=== PATIENT | female | born 1960 | race Caucasian/White ===

== ENCOUNTER → 2018-05-17 | Outpatient (CLI) | payer OTHER ==
--- NOTE | 2018-05-19 08:49 | MM ---
Reason for exam: screening (asymptomatic). Last mammogram was performed 2 years and 6 months ago. History: Patient is postmenopausal and history of other cancer. Family history of breast cancer in sister at age 49. Benign MG stereo VAD BX LT of the left breast, October 30, 2013. MG Screening Mammo w CAD Bilateral CC and MLO view(s) were taken. Prior study comparison: November 03, 2015, bilateral MG screening mammo w CAD. October 23, 2014, right breast MG work up mamm w CAD RT. The breast tissue is heterogeneously dense. This may lower the sensitivity of mammography. There is a focal asymmetry in the upper outer left breast. Finding is new when compared with prior studies. ASSESSMENT: Incomplete: need additional imaging evaluation, BI-RAD 0 RECOMMENDATION: Special view mammogram of the left breast.
== END | disposition home or self-care (01) ==
LOC: RADMAMWWP 15:58
PROVIDERS: ATTEND Family Medicine
DX: Z12.31 Encounter for screening mammogram for malignant neoplasm of breast (principal)
CPT/HCPCS: 77067

== ENCOUNTER → 2018-05-31 | Outpatient (CLI) | payer OTHER ==
--- NOTE | 2018-06-01 10:57 | MM ---
Reason for exam: additional evaluation requested from abnormal screening. Last mammogram was performed less than 1 month ago. History: Patient is postmenopausal and history of other cancer. Family history of breast cancer in sister at age 49. Benign MG stereo VAD BX LT of the left breast, October 30, 2013. Physical Findings: Nurse Summary: 0.5cm nodule in the left breast at 4 o'clock (nurse alicia). MG Work Up Mamm w CAD LT Spot compression CC, spot compression MLO, and LM view(s) were taken of the left breast. Prior study comparison: May 17, 2018, bilateral MG screening mammo w CAD. November 03, 2015, bilateral MG screening mammo w CAD. Density persists, ultrasound recommended. These results were verbally communicated with the patient and result sheet given to the patient on 05/31/18. ASSESSMENT: Incomplete: need additional imaging evaluation, BI-RAD 0 RECOMMENDATION: Ultrasound of the left breast.
--- NOTE | 2018-06-01 10:59 | USB ---
Reason for exam: additional evaluation requested from abnormal screening. History: Patient is postmenopausal and history of other cancer. Family history of breast cancer in sister at age 49. Benign MG stereo VAD BX LT of the left breast, October 30, 2013. US Breast Workup Limited LT Left limited breast ultrasound including focal area of concern, retroareolar and axilla demonstrates a 7 x 5 x 5mm solid, hypoechoic, vascular lesion at 3 o'clock and a 8 x 4 x 6mm oval lobe at 12 o'clock. These results were verbally communicated with the patient and result sheet given to the patient on 05/31/18. ASSESSMENT: Suspicious, BI-RAD 4 RECOMMENDATION: Ultrasound core biopsy of the left breast. (3 o'clock) Called Dr. Babb with mammographic findings and has scheduled an appointment for the patient for 06/15/18 at 3:[address] Joaquin. PRELIMINARY REPORT CALLED AND FAXED TO DR. JOAQUIN ON 06/01/18.
== END | disposition home or self-care (01) ==
LOC: RADMAMWWP 13:36
PROVIDERS: ATTEND Family Medicine
DX: R92.8 Other abnormal and inconclusive findings on diagnostic imaging of breast (principal)
CPT/HCPCS: 77065

== ENCOUNTER → 2018-06-15 | Outpatient (CLI) | payer OTHER ==
[2018-06-15 15:27] VITALS: BP 127/71; PULSE 77; RESP 16; TEMP 98.3; BMI 27.4
--- NOTE | 2018-06-15 16:09 | P.GSHP ---
History of Present Illness H&P Date: 06/15/18 Chief Complaint: Radiographic abnormality left breast Provider is a 57-year-old white female who presents for evaluation of radiographic abnormality noted left breast. In 05/17/2018 she underwent a bilateral mammogram. This revealed a focal asymmetry in the upper outer left breast. No lesions of concern were identified in the right breast. The patient subsequently had additional radiographic views of the left breast and the density persisted. She then proceeded to a left breast ultrasound performed on 2718. This revealed a 7 x 5 mm solid hypoechoic vascular lesion at 3:00 and a 8 x 4 mm lesion at 12:00. The findings were felt to be suspicious for the 3:00 lesion and an ultrasound-guided core biopsy was recommended. The patient does not feel any changes or abnormalities in her breasts. The patient denies any trauma or infection to her breasts. She has no skin changes or nipple discharge for which she is concerned. The patient is status post left breast stereotactic core biopsy in the past and the findings were benign. Doris Risk: 5 year: 2.8% lifetime risk: 15.2% Family History: 1. patient : cervical and skin cancer ( unsure of the type) 2. sister: breast cancer at 54 3. paternal grandmother: throat 4. maternal grandmother: stomach cancer Hormonal History: menarche: 15 : 4, 3 live births, 1 [place], breast fed: yes first born at 19 menopasue: hysterectomy for cervical cancer at the age of 25, did nto take ovaries BCP: 3 years hormones: no Past surgical history: 1. Hysterectomy 2. Cholecystectomy 3. Sinus surgery 4. Stereotactic breast biopsy of the left breast Past medical history: 1. Cataracts 2. HTN 3. tremors 4. "heart racing" 5. GERD Social History: smoke: 1/2 PPD since alcohol: stopped 2007 drugs: none - Constitutional Constitutional: Denies chills, Denies fever - EENT Comment: cataracts Eyes: denies pain Ears: right: decreased hearing, bilateral: tinnitus Ears, nose, mouth and throat: Reports headache - Breasts Breasts: bilateral: as per HPI - Cardiovascular Comment: heart racing Cardiovascular: Reports high blood pressure - Respiratory Comment: smoker, COPD, emphysema - Gastrointestinal Comment: GERD nausea abdominal pain followed by GI - Genitourinary (Female) Genitourinary: Denies dysuria, Denies hematuria - Menstruation Menstruation: Reports post hysterectomy - Musculoskeletal Comment: arthritis hands fibromyalgia Musculoskeletal: Reports myalgias - Integumentary Comment: skin cancer treated in the past - Neurological Comment: Tremors, patient has had mini strokes 4 Neurological: Reports numbness, Denies weakness - Psychiatric Psychiatric: Reports anxiety - Endocrine Endocrine: Reports weight change, Denies fatigue - Hematologic/Lymphatic Comment: aspirin - Allergic/Immunologic Allergic/Immunologic: Reports seasonal allergies Past Medical History Past Medical History: Cancer, COPD, GERD/Reflux, Hypertension, Musculoskeletal Disorder Additional Past Medical History / Comment(s): cervical CA, tremors History of Any Multi-Drug Resistant Organisms: None Reported Past Surgical History: Cholecystectomy, Hysterectomy Additional Past Surgical History / Comment(s): sinus surg., colonoscopy Past Anesthesia/Blood Transfusion Reactions: No Reported Reaction Smoking Status: Current every day smoker Past Alcohol Use History: None Reported Past Drug Use History: None Reported - Past Family History Mother Family Medical History: Cancer Sister(s) Family Medical History: Cancer Medications and Allergies Home Medications Medication Instructions Recorded Confirmed Type Albuterol Inhaler [Ventolin 1 - 2 puff INHALATION Q6HR PRN 11/04/14 06/15/18 History Inhaler] HYDROcodone/APAP 7.5-325MG [[place] 1 each PO Q6HR PRN 11/04/14 06/15/18 History 7.5-325] Multivitamin/Iron/Folic Acid 1 each PO DAILY 11/04/14 06/15/18 History [Centrum Complete Multivit Tab] Aspirin [Adult Low Dose Aspirin EC] 81 mg PO DAILY 06/14/18 06/15/18 History Budesonide-Formot 160-4.5 Mcg 2 puff INHALATION BID 06/14/18 06/15/18 History [Symbicort 160-4.5 Mcg Inhaler] Fenofibrate 160 mg PO DAILY 06/14/18 06/15/18 History L.acidoph,Paracasei, B.lactis 1 each PO DAILY 06/14/18 06/15/18 History [Probiotic] Losartan Potassium 100 mg PO QAM 06/14/18 06/15/18 History Magnesium 500 mg PO DAILY 06/14/18 06/15/18 History Metoprolol Succinate [Toprol XL] 50 mg PO QAM 06/14/18 06/15/18 History Oxybutynin Chloride [Ditropan] 5 mg PO BID 06/14/18 06/15/18 History Pantoprazole [Protonix] 40 mg PO DAILY 06/14/18 06/15/18 History Umeclidinium [place] [Incruse 62.5 mcg INHALATION BID 06/14/18 06/15/18 History Ellipta] Azithromycin 1 gm PO 06/15/18 History Carboxymethylcellulose Sodium 15 ml OP 06/15/18 History [Refresh Tears] Moxifloxacin [Vigamox 0.3%] 1 drop RIGHT EYE TID 06/15/18 06/15/18 History prednisoLONE ACETATE 1% OPHTH 1 drops BOTH EYES Q4HR 06/15/18 06/15/18 History [Pred Forte 1%] Allergies Allergy/AdvReac Type Severity Reaction Status Date / Time amoxicillin [From Augmentin] Allergy Itching Unverified 06/15/18 15:32 clavulanic acid Allergy Itching Unverified 06/15/18 15:32 [From Augmentin] dicyclomine Allergy Itching Unverified 06/15/18 15:32 erythromycin base Allergy Itching Unverified 06/15/18 15:32 Penicillins Allergy Rash/Hives Verified 06/15/18 15:32 calcium carbonate AdvReac Nausea & Verified 06/15/18 15:32 [From Viactiv] Vomiting & Diarrhea cholecalciferol (vitamin D3) AdvReac Nausea & Verified 06/15/18 15:32 [From Viactiv] Vomiting & Diarrhea codeine AdvReac Nausea Verified 06/15/18 15:32 phytonadione (vitamin K1) AdvReac Nausea & Verified 06/15/18 15:32 [From Viactiv] Vomiting & Diarrhea Surgical - Exam Vital Signs Temp Pulse Resp BP Pulse Ox 98.3 F 77 16 127/71 95 06/15/18 15:20 06/15/18 15:20 06/15/18 15:20 06/15/18 15:20 06/15/18 15:20 BMI 27.5 - General well developed, well nourished, no distress - Eyes normal ocular movement - ENT no hearing loss, no congestion - Neck no masses, trachea midline - Respiratory normal respiratory effort, clear to auscultation - Cardiovascular Rhythm: regular Heart Sounds: normal: S1, S2 - Abdomen Abdomen: soft, non tender, no guarding, no rigid, no rebound - Integumentary russell turgor - Neurologic no disoriented, no combative - Musculoskeletal normal gait, normal posture - Psychiatric oriented to time, oriented to person, oriented to place, speech is normal, memory intact Breast exam: Right breast: Multi-positional exam no dominant masses or nodules of concern Right axilla: No adenopathy of concern Left breast: Multi-positional exam no dominant masses or nodules of concern Left axilla: No adenopathy of concern Results Radiographic results mammogram and ultrasound reviewed Assessment and Plan Assessment: Impression: 1. Radiographic abnormality left breast 2. Fibrocystic breast disease 3. Family history cancer 4. Personal history of cancer 5. Cataracts 6. HTN 7. tremors 8. "heart racing" 9. GERD 10. High risk for breast cancer as per Doris model (patient is not interested in chemo prevention at this time) Plan: 1. Ultrasound core biopsy of the left breast 2. Medical management of medical conditions 3. follow up one week after core biopsy cc: Dr. Babb
== END | disposition home or self-care (01) ==
LOC: WWCWWP 14:21
PROVIDERS: ATTEND Surgery
DX: Z53.9 Procedure and treatment not carried out, unspecified reason (principal)

== ENCOUNTER 2018-06-20 08:30 | Day surgery (SDC) | payer OTHER ==
[2018-06-14 15:46] VITALS: BMI 27.4
[~2018-06-20 08:30] MED LIST: DEXAMETHASONE SOD PHOSPHATE 10 MG/ML 1 ML VIAL IV ONE; HYDROmorphone 0.5 MG/0.5 ML SYRINGE IVP PRN; LACTATED RINGERS 1,000 ML IV SCH; LIDOCAINE 1% 20 ML VIAL (10MG/ML) FOR IV START INTRADERMA PRN; MIDAZOLAM (PF) 2 MG/2 ML VIAL IV PRN; MOXIFLOXACIN HCL 0.5% DROPS 3 ML BTL OP ONE; ONDANSETRON 4 MG/2 ML VIAL IVP ONE; SCOPOLAMINE 1.5MG/72HR PATCH TRANSDERM ONE; TETRACAINE 0.5% OPHTH (PF) DROPS 4 ML BTL OP ONE; TIMOLOL 0.5% OPHTH DROPS 5 ML BTL OP ONE
[2018-06-20] MEDS: PHENYLEPHRINE 2.5% OPHTH DRP 2ML OP NR ×3 (08:47→09:00)
[2018-06-20] MEDS: CYCLOPENTOLATE 1% OPHTH SOLN 2 ML BTL OP ONE ×3 (08:50→09:03)
[2018-06-20 08:55] VITALS: TEMP 97
[2018-06-20] MEDS ORDERED: MIDAZOLAM 2 MG/2 ML VIAL ONE (09:52)
[2018-06-20] MEDS ORDERED: fentaNYL (PF) 50 MCG/ML 2 ML AMP ONE (09:52)
[2018-06-20] MEDS ORDERED: HYALURONATE SODIUM INTRAOCULAR 1 EACH SYRINGE (12MG/ML) INTRAOCULA ONE (09:53)
[2018-06-20] MEDS ORDERED: BALANCED SALT IRRIG SOLN COMB2 15 ML IRRIG.SOLN IRRIGATION ONE (09:53)
[2018-06-20] MEDS ORDERED: LIDOCAINE 1% (PF) 10MG/ML VIAL SQ ONE (09:53)
[2018-06-20] MEDS ORDERED: EPINEPHrine (PF) 0.3 ML in BALANCED SALT IRRIG SOLN COMB2 500 ML IRRIGATION ONE (10:08)
--- NOTE | 2018-06-20 10:21 | P.OP ---
Date of Procedure: 06/20/18 Preoperative Diagnosis: NS & CS Postoperative Diagnosis: same Procedure(s) Performed: PIOL, OD Implants: PCB00 24.50 Anesthesia: MAC Surgeon: Fernando Millard Estimated Blood Loss (ml): 0 Pathology: none sent Condition: stable Disposition: same day Indications for Procedure: blurry vision Operative Findings: No complications
[2018-06-20 10:46] VITALS: BP 138/81; PULSE 62; RESP 18
--- NOTE | 2018-06-20 12:21 | OP ---
OPERATIVE REPORT DATE OF SURGERY: 06/20/2018. PROCEDURES: Phacoemulsification of cataract and intraocular lens implant of the right eye. PREOPERATIVE DIAGNOSIS: Nuclear sclerosis, cortical sclerosis. POSTOPERATIVE DIAGNOSIS:: Nuclear sclerosis, cortical sclerosis. ESTIMATED BLOOD LOSS:: Zero. SPECIMEN TAKEN:: None. NARRATIVE:: After obtaining the appropriate consent, the patient was brought to the Operating Room where the patient was placed under cardiac monitoring and prepped and draped in the usual sterile manner. At the 11 o'clock position a 15 degree super sharp blade was used to create a paracentesis followed by instillation of 1% Xylocaine MPF 50:50 mix with BSS into the anterior chamber. This was followed by Amvisc to stabilize the anterior chamber. At the 3 o'clock position a self-sealing corneal flap incision was created using 2.8 mm sandra keratome. A cystotome was used to initiate a continuous tear capsulorrhexis which was completed with the Utrata forceps. A Binkhorst cannula was used to hydrodissect the lens nucleus followed by hydrodelineation. Phacoemulsification of the lens was performed utilizing phacochop in 3.71 seconds at 10% power. The remaining cortical material was removed using the irrigation aspiration mode followed by additional 1% Xylocaine MPF into the anterior chamber followed by viscoelastic to stabilize the capsular bag. An [id number] 24.5 Diopters posterior chamber lens was placed into the capsular bag without difficulty. The remaining viscoelastic material was removed from the anterior chamber with the irrigation/aspiration. Balanced salt solution was used to normalize the intraocular pressure. The incision was checked for watertight integrity. The patient then received two drops of 0.5% timolol followed by two drops Vigamox, was lightly patched and shielded in the usual manner. There were no complications from the procedure. The patient tolerated the procedure well and was returned to recovery in good condition. MMODL / IJN: [id number] /
== END 2018-06-20 10:57 | disposition home or self-care (01) ==
LOC: OR 08:30
PROVIDERS: ATTEND Ophthalmology
DX: H25.13 Age-related nuclear cataract, bilateral (principal); H00.023 Hordeolum internum right eye, unspecified eyelid; H00.026 Hordeolum internum left eye, unspecified eyelid; H47.393 Other disorders of optic disc, bilateral; H25.013 Cortical age-related cataract, bilateral; H52.223 Regular astigmatism, bilateral; H52.4 Presbyopia; H52.01 Hypermetropia, right eye; F17.210 Nicotine dependence, cigarettes, uncomplicated; I10 Essential (primary) hypertension; Z88.0 Allergy status to penicillin; Z88.5 Allergy status to narcotic agent; Z88.1 Allergy status to other antibiotic agents; J43.9 Emphysema, unspecified; Z86.73 Personal history of transient ischemic attack (TIA), and cerebral infarction without residual deficits; Z79.82 Long term (current) use of aspirin; Z79.899 Other long term (current) drug therapy; Z79.891 Long term (current) use of opiate analgesic; Z83.518 Family history of other specified eye disorder; Z79.52 Long term (current) use of systemic steroids
CPT/HCPCS: 66984; C1780; J2250; J0171; J3010; J2001

== ENCOUNTER 2018-08-15 10:43 | Day surgery (SDC) | payer OTHER ==
[2018-08-09 16:14] VITALS: BMI 27.4
[~2018-08-15 10:43] MED LIST changes: -DEXAMETHASONE SOD PHOSPHATE 10 MG/ML 1 ML VIAL IV ONE; -HYDROmorphone 0.5 MG/0.5 ML SYRINGE IVP PRN; -MIDAZOLAM (PF) 2 MG/2 ML VIAL IV PRN; -SCOPOLAMINE 1.5MG/72HR PATCH TRANSDERM ONE
[2018-08-15] MEDS: CYCLOPENTOLATE 1% OPHTH SOLN 2 ML BTL OP ONE ×3 (11:41→12:00)
[2018-08-15 11:42] VITALS: RESP 16; TEMP 97.7
[2018-08-15] MEDS: PHENYLEPHRINE 2.5% OPHTH DRP 2ML OP NR ×3 (11:45→12:03)
[2018-08-15] MEDS ORDERED: HYALURONATE SODIUM INTRAOCULAR 1 EACH SYRINGE (12MG/ML) INTRAOCULA ONE (13:00)
[2018-08-15] MEDS ORDERED: MIDAZOLAM 2 MG/2 ML VIAL ONE (13:00)
[2018-08-15] MEDS ORDERED: fentaNYL (PF) 50 MCG/ML 2 ML AMP ONE (13:00)
[2018-08-15] MEDS ORDERED: BALANCED SALT IRRIG SOLN COMB2 15 ML IRRIG.SOLN IRRIGATION ONE (13:00)
[2018-08-15] MEDS ORDERED: EPINEPHrine (PF) 0.3 ML in BALANCED SALT IRRIG SOLN COMB2 500 ML IRRIGATION ONE (13:03)
[2018-08-15] MEDS ORDERED: LIDOCAINE 1% (PF) 10MG/ML VIAL SQ ONE (13:04)
--- NOTE | 2018-08-15 13:25 | P.OP ---
Date of Procedure: 08/15/18 Preoperative Diagnosis: NS & CS Postoperative Diagnosis: same Procedure(s) Performed: PIOL, OS Implants: PCB00 24.50 Anesthesia: MAC Surgeon: Fernando Millard Pathology: none sent Condition: stable Disposition: same day Indications for Procedure: blurry vision Operative Findings: no complications
[2018-08-15 13:51] VITALS: BP 151/79; PULSE 61
--- NOTE | 2018-08-15 18:29 | OP ---
OPERATIVE REPORT DATE OF SURGERY: August 15, 2018. PROCEDURE PERFORMED: Phacoemulsification of cataract and intraocular lens implant to the left eye. SURGEON: Fernando Millard M.D. HEALTH SAFETY ENGINEER:: PREOPERATIVE DIAGNOSES: Nuclear sclerosis. Cortical sclerosis. POSTOPERATIVE DIAGNOSES: Nuclear sclerosis. Cortical sclerosis. OPERATION:: Clear cornea phacoemulsification of cataract OS eye. ESTIMATED BLOOD LOSS:: Zero. SPECIMEN TAKEN:: None. NARRATIVE: After obtaining the appropriate consent, the patient was brought to the Operating Room where the patient was placed under cardiac monitoring and prepped and draped in the usual sterile manner. At the 5 o'clock position, a 15 degree super sharp blade was used to create a paracentesis followed by instillation of 1% Xylocaine MPF 50:50 mix with BSS into the anterior chamber. This was followed by Amvisc to stabilize the anterior chamber. At the 3 o'clock position a self-sealing corneal flap incision was created using 2.8 mm sandra keratome. A cystatome was used to initiate a continuous tear capsulorrhexis which was completed with the Utrata forceps. A Binkhorst cannula was used to hydrodissect the lens nucleus followed by hydrodelineation. Phacoemulsification of the lens was performed utilizing phaco-chop in 4 seconds at 6% power. The remaining cortical material was removed using the irrigation aspiration mode followed by additional 1% Xylocaine MPF into the anterior chamber followed by viscoelastic to stabilize the capsular bag. An MARLON PCB00 24.0 diopter posterior chamber lens was placed into the capsular bag without difficulty. The remaining viscoelastic material was removed from the anterior chamber with the irrigation/aspiration. Balanced salt solution was used to normalize the intraocular pressure. The incision was checked for watertight integrity. The patient then received two drops of 0.5% timolol followed by two drops Vigamox, was lightly patched and shielded in the usual manner. There were no complications from the procedure. The patient tolerated the procedure well and was returned to recovery in good condition. MMODL / IJN: [id number] / MTDD
== END 2018-08-15 14:01 | disposition home or self-care (01) ==
LOC: OR 10:43
PROVIDERS: ATTEND Ophthalmology
DX: H25.812 Combined forms of age-related cataract, left eye (principal); H47.393 Other disorders of optic disc, bilateral; H00.023 Hordeolum internum right eye, unspecified eyelid; H00.026 Hordeolum internum left eye, unspecified eyelid; H52.01 Hypermetropia, right eye; H52.4 Presbyopia; H52.223 Regular astigmatism, bilateral; J43.9 Emphysema, unspecified; I10 Essential (primary) hypertension; F17.210 Nicotine dependence, cigarettes, uncomplicated; Z86.73 Personal history of transient ischemic attack (TIA), and cerebral infarction without residual deficits; Z79.82 Long term (current) use of aspirin; Z79.899 Other long term (current) drug therapy; Z88.0 Allergy status to penicillin; Z88.5 Allergy status to narcotic agent; Z96.1 Presence of intraocular lens; Z98.41 Cataract extraction status, right eye; Z79.891 Long term (current) use of opiate analgesic
CPT/HCPCS: 66984; C1780; J2250; J0171; J3010; J2001

== ENCOUNTER → 2018-09-10 | Outpatient (CLI) | payer OTHER ==
--- NOTE | 2018-09-10 16:49 | CT ---
EXAMINATION TYPE: CT abdomen pelvis w con DATE OF EXAM: 09/10/2018 COMPARISON: None INDICATION: Epigastric pain, nausea, vomiting and distention. DLP: 636.9 mGycm, Automated exposure control for dose reduction was used. CONTRAST: 100ml mL of Isovue 300. Study performed with Oral Contrast TECHNIQUE: Axial images were obtained from above the diaphragm to the pubic rami in the axial plane a t 5 mm thick sections. Reconstructed images are reviewed on the computer in the coronal plane. FINDINGS: Limited CT sections are obtained the lung bases. The lung bases are clear. CT ABDOMEN: Liver: Normal Spleen: Normal Pancreas: Normal Adrenal glands: The adrenal glands are normal. Gallbladder: Surgically absent Kidneys: No masses are evident. No hydronephrosis is present. There is a 1.2 cm cyst the superior m edial left upper pole measuring 13 Hounsfield units. Delayed images were obtained through the kidney s, which remain unremarkable. Aorta: Vascular calcification is within the aorta. Inferior vena cava: Normal. CT PELVIS: Loops of bowel within the abdomen and pelvis are normal. There are loops of bowel which are incom pletely distended or lack oral contrast limiting their evaluation. Scattered diverticuli are within t he sigmoid colon. Appendix: Normal as visualized. Urinary bladder: Normal. Genitourinary structures: Osseous structures: Uterus is absent. Ovaries are not identified. No free fluid is within the pelvis. IMPRESSIONS: 1. No acute suspicious changes CT abdomen pelvis. 2. Diverticulosis without acute diverticulitis. 3. Superior pole left renal cyst
== END ==
LOC: RADCTMAIN 13:10
PROVIDERS: ATTEND Internal Medicine Gastroenterology
DX: N28.1 Cyst of kidney, acquired (principal); K57.90 Diverticulosis of intestine, part unspecified, without perforation or abscess without bleeding
CPT/HCPCS: 74177; Q9967